=== PATIENT | female | born 1955 | race Caucasian/White ===

== ENCOUNTER 2017-01-27 11:55 | Inpatient (IN) | payer OTHER ==
[~2017-01-27] VITALS: Ht 167.6 cm; Wt 88.9 kg
[2017-01-27] MEDS ORDERED: ASPIRIN 81 MG TABLET CHEW ONE (12:45)
[2017-01-27] MEDS ORDERED: SODIUM CHLORIDE FLUSH 10ML SYR IVF ONE (13:00)
[2017-01-27] MEDS ORDERED: ASPIRIN 81 MG TABLET CHEW PO ONE (13:00)
[2017-01-27 13:16] LABS: BLOOD UREA NITROGEN 18 mg/dL (7-18)
[2017-01-27 13:21] LABS: ASPARTATE AMINO TRANSFERASE 19 U/L (15-37)
[2017-01-27 13:22] LABS: IS PT STATUS REG ER OR PRE ER? YES
[2017-01-27] MEDS ORDERED: NITROGLYCERIN SINGLE TAB 0.4 MG SL ONE (13:54)
[2017-01-27] MEDS: NITROGLYCERIN 0.4 MG BOTTLE (25 TABS) SL PRN ×2 (13:55→16:23)
[2017-01-27] MEDS ORDERED: morphine SULFATE 10 MG/ML, 1ML IVPush PRN (15:00)
[2017-01-27] MEDS ORDERED: NITROGLYCERIN 0.4 MG BOTTLE (25 TABS) SL PRN (15:00)
[2017-01-27] MEDS ORDERED: POLYETHYLENE GLYCOL 17 GM PACKET PO PRN ×2 (15:00→21:00)
[2017-01-27] MEDS ORDERED: ONDANSETRON 2MG/ML, 2ML IVPush PRN (15:00)
[2017-01-27] MEDS ORDERED: DOCUSATE 100 MG CAPSULE PO PRN ×2 (15:00→21:00)
[2017-01-27] MEDS ORDERED: ACETAMINOPHEN 325 MG TABLET PO PRN (15:00)
[2017-01-27] MEDS ORDERED: BISACODYL 10 MG SUPP PR PRN (15:00)
[2017-01-27] MEDS ORDERED: LABETALOL 5MG/ML 40ML VIAL IVPush PRN (15:00)
[2017-01-27 15:58] VITALS: BP 132/86
[2017-01-27] MEDS ORDERED: ENOXAPARIN 40 MG/0.4 ML SQ SCH (17:00)
[2017-01-27 17:33] LABS: IS PT STATUS REG ER OR PRE ER? NO
[2017-01-27 19:10] VITALS: BP 121/76
[2017-01-27] MEDS: SODIUM CHLORIDE FLUSH 10ML SYR IVF SCH (20:38)
[2017-01-27] MEDS: ACETAMINOPHEN 325 MG TABLET PO PRN (20:38)
[2017-01-27] MEDS ORDERED: SODIUM CHLORIDE FLUSH 10ML SYR IVF SCH (21:00)
[2017-01-27 23:10] LABS: IS PT STATUS REG ER OR PRE ER? NO
[2017-01-28] MEDS ORDERED: HEPARIN 5,000 UNITS/ML, 1ML IV ONE (00:30)
[2017-01-28] MEDS ORDERED: HEPARIN 5,000 UNITS/ML, 1ML IV PRN (00:30)
[2017-01-28] MEDS: LISINOPRIL 5 MG TABLET PO SCH ×2 (00:52→10:01)
[2017-01-28] MEDS: ATORVASTATIN 80 MG TABLET PO SCH ×2 (00:52→20:44)
[2017-01-28] MEDS: CARVEDILOL 3.125 MG TABLET PO SCH ×3 (00:52→17:43)
[2017-01-28] MEDS: HEPARIN 25,000 UNITS/500ML PMX 500 ML IV PRN (01:01)
[2017-01-28 02:21] VITALS: BP 124/76
[2017-01-28] MEDS: ASPIRIN 325 MG TABLET EC PO SCH (05:55)
[2017-01-28 08:02] VITALS: BP 107/71
[2017-01-28 08:05] LABS: IS PT STATUS REG ER OR PRE ER? NO
[2017-01-28] MEDS: SODIUM CHLORIDE FLUSH 10ML SYR IVF SCH ×2 (10:01→20:44)
[2017-01-28 15:47] VITALS: BP 100/62
[2017-01-28] MEDS: ACETAMINOPHEN 325 MG TABLET PO PRN (17:43)
[2017-01-28 17:45] VITALS: BP 104/70
[2017-01-28 19:40] VITALS: BP 95/64
[2017-01-28] MEDS: HYDROcodone/APAP 5/325 TABLET PO PRN (20:44)
[2017-01-29] MEDS: HEPARIN 25,000 UNITS/500ML PMX 500 ML IV PRN (00:35)
[2017-01-29 01:05] VITALS: BP 100/69
[2017-01-29] MEDS: CARVEDILOL 3.125 MG TABLET PO SCH ×2 (06:00→18:04)
[2017-01-29 06:11] VITALS: BP 96/62
[2017-01-29] MEDS: ASPIRIN 325 MG TABLET EC PO SCH (06:16)
[2017-01-29 07:19] LABS: BLOOD UREA NITROGEN 16 mg/dL (7-18)
[2017-01-29 07:25] VITALS: BP 103/68
[2017-01-29 07:35] LABS: IS PT STATUS REG ER OR PRE ER? NO
[2017-01-29] MEDS: LISINOPRIL 5 MG TABLET PO SCH (08:08)
[2017-01-29] MEDS: SODIUM CHLORIDE FLUSH 10ML SYR IVF SCH ×2 (08:08→21:34)
[2017-01-29] MEDS: HYDROcodone/APAP 5/325 TABLET PO PRN ×2 (12:02→21:33)
[2017-01-29] MEDS ORDERED: FENTANYL PF 100 MCG/2ML ONE (12:32)
[2017-01-29] MEDS ORDERED: MIDAZOLAM 1 MG/ML, 5ML ONE (12:33)
[2017-01-29] MEDS ORDERED: BIVALIRUDIN 250 MG ONE (12:33)
[2017-01-29] MEDS ORDERED: VERAPAMIL 2.5 MG/ML, 2ML ONE (12:33)
[2017-01-29] MEDS ORDERED: LIDOCAINE 2%, 20ML ONE (12:33)
[2017-01-29] MEDS ORDERED: HEPARIN 1,000 UNITS/ML, 10ML ONE (12:33)
[2017-01-29 13:50] VITALS: BP 100/65
[2017-01-29 19:09] VITALS: BP 101/66
[2017-01-29] MEDS: ATORVASTATIN 80 MG TABLET PO SCH (21:33)
[2017-01-30 01:12] VITALS: BP 98/62
[2017-01-30] MEDS: CARVEDILOL 3.125 MG TABLET PO SCH (05:46)
[2017-01-30] MEDS: ASPIRIN 325 MG TABLET EC PO SCH (05:47)
[2017-01-30 06:34] LABS: BLOOD UREA NITROGEN 18 mg/dL (7-18)
[2017-01-30 06:45] VITALS: BP 96/55
[2017-01-30] MEDS: HYDROcodone/APAP 5/325 TABLET PO PRN (08:55)
[2017-01-30] MEDS: LISINOPRIL 5 MG TABLET PO SCH (08:56)
[2017-01-30] MEDS: SODIUM CHLORIDE FLUSH 10ML SYR IVF SCH (08:57)
[2017-01-30] MEDS ORDERED: CLOPIDOGREL 75 MG TABLET PO SCH (10:00)
[2017-01-30] MEDS ORDERED: ATOR80TA75 PO (13:05)
[2017-01-30] MEDS ORDERED: CARV3.1212 PO (13:05)
[2017-01-30] MEDS ORDERED: CLOP75TA PO (13:05)
[2017-01-30] MEDS ORDERED: ASPI-650 PO (13:05)
[2017-01-30] MEDS ORDERED: LISI5TAB7 PO (13:05)
[2017-01-30 13:35] VITALS: BP 90/60
== END 2017-01-30 15:30 | disposition home or self-care (01) | DRG 281 ==
LOC: ED 14:05 → EDIP 14:06 → ED 14:28 → 5SO 15:54 → DCLOUNGE 01-30 15:14
PROVIDERS: ADMIT Hospitalist; ATTEND Hospitalist
PROC: 4A023N7 Measurement of Cardiac Sampling and Pressure, Left Heart, Percutaneous Approach (ICD-10-PCS; principal; 2017-01-29)
PROC: B2111ZZ Fluoroscopy of Multiple Coronary Arteries using Low Osmolar Contrast (ICD-10-PCS; 2017-01-29)
PROC: B2151ZZ Fluoroscopy of Left Heart using Low Osmolar Contrast (ICD-10-PCS; 2017-01-29)
DX: I21.4 Non-ST elevation (NSTEMI) myocardial infarction (principal); J98.11 Atelectasis; E78.5 Hyperlipidemia, unspecified; R73.9 Hyperglycemia, unspecified; I25.2 Old myocardial infarction; Z72.0 Tobacco use; I25.111 Atherosclerotic heart disease of native coronary artery with angina pectoris with documented spasm
CPT/HCPCS: 36415; 71010; 80048; 80053; 80061; 84484; 85025; 85520; 85610; 93005; 93306; 93458; 99156; 99285; C1894; J0583; J1644; J1650; J2250; J2405; J3010; J3490; Q9967